=== PATIENT | female | born 1950 | race Caucasian/White ===

== ENCOUNTER → 2023-12-23 06:29 | Day surgery (SDC) | payer OTHER, SELFPAY | LOC: GI 06:29 | PROVIDERS: ATTENDING PHYSICIAN Internal Medicine Gastroenterology; FAMILY PHYSICIAN Internal Medicine | DX: Z12.11 Encounter for screening for malignant neoplasm of colon (principal); D12.0 Benign neoplasm of cecum; K63.5 Polyp of colon; K57.30 Diverticulosis of large intestine without perforation or abscess without bleeding; K64.0 First degree hemorrhoids; Z86.010 Personal history of colon polyps; Z87.19 Personal history of other diseases of the digestive system | CPT/HCPCS: 45380; 88305 ==

== ENCOUNTER → 2024-01-21 08:38 | Outpatient (REF) | payer OTHER, SELFPAY | LOC: HWRAD 08:38 | PROVIDERS: ATTENDING PHYSICIAN Internal Medicine | DX: M54.9 Dorsalgia, unspecified (principal); M54.50 Low back pain, unspecified | CPT/HCPCS: 72074; 72110 ==

== ENCOUNTER → 2024-03-16 09:19 | Outpatient (REF) | payer OTHER, SELFPAY | LOC: HWWDC 09:19 | PROVIDERS: ATTENDING PHYSICIAN Obstetrics & Gynecology; FAMILY PHYSICIAN Internal Medicine | DX: Z12.31 Encounter for screening mammogram for malignant neoplasm of breast (principal) | CPT/HCPCS: 77063; 77067 ==

== ENCOUNTER → 2024-03-31 17:36 | Outpatient (REF) | payer OTHER, SELFPAY | LOC: MRI 17:36 | PROVIDERS: ATTENDING PHYSICIAN Pain Medicine Interventional Pain Medicine; FAMILY PHYSICIAN Internal Medicine | DX: M54.12 Radiculopathy, cervical region (principal); M54.16 Radiculopathy, lumbar region | CPT/HCPCS: 72141; 72148 ==

== ENCOUNTER → 2025-03-22 09:36 | Outpatient (REF) | payer OTHER, SELFPAY | LOC: HWWDC 09:36 | PROVIDERS: ATTENDING PHYSICIAN Obstetrics & Gynecology; FAMILY PHYSICIAN Internal Medicine | DX: Z12.31 Encounter for screening mammogram for malignant neoplasm of breast (principal) | CPT/HCPCS: 77063; 77067 ==

== ENCOUNTER → 2025-05-04 13:15 | Outpatient (REF) | payer OTHER, SELFPAY | LOC: HWRCS 13:15 | PROVIDERS: ATTENDING PHYSICIAN Internal Medicine | DX: I35.0 Nonrheumatic aortic (valve) stenosis (principal) | CPT/HCPCS: 93306 ==

== ENCOUNTER → 2025-07-25 10:08 | Outpatient (REF) | payer OTHER, SELFPAY | LOC: HWRAD 10:08 | PROVIDERS: ATTENDING PHYSICIAN Obstetrics & Gynecology; FAMILY PHYSICIAN Internal Medicine | DX: M81.0 Age-related osteoporosis without current pathological fracture (principal) | CPT/HCPCS: 77080 ==